=== PATIENT | male | born 1980 | race Caucasian/White ===

== ENCOUNTER 2020-01-17 17:02 | Emergency (ER) | payer OTHER ==
[~2020-01-17] VITALS: Ht 190.5 cm; Wt 88.5 kg
[2020-01-17 19:04] LABS: Hematocrit 22.8 % (41.0-53.0); Mean Corpuscular Hemoglobin 16.8 pg (28.0-32.0); Mean Corpuscular Hgb Conc. 28.8 g/dL (32.0-36.0); Mean Corpuscular Volume 58.5 fL (80.0-100.0); Platelet Count (auto) 541 10^3/uL (140-450); White Blood Cell 5.6 10^3/uL (4.4-10.8)
[2020-01-17 19:19] LABS: Hemoglobin 6.6 g/dL (13.5-17.5); INR 0.92 (0.9-1.15); Partial Thromboplastin Time 22.5 sec (23.0-31.2)
[2020-01-17 19:20] LABS: Basophils % (manual) 0 (0.0-2.0); Blast Cells 0; Eosinophils % (manual) 0 (0-7); Myelocytes % 0; Promyelocytes % 0; Reactive Lymphocytes 0
[2020-01-17 19:22] LABS: Albumin 3.6 g/dL (3.4-5.0); Anion Gap 5 (5-15); Calcium 8.9 mg/dL (8.5-10.1); Carbon Dioxide 29 mmol/L (21-32); Chloride 105 mmol/L (98-107); Glucose 105 mg/dL (74-106); Sodium 139 mmol/L (136-145)
[2020-01-17 19:30] LABS: Alanine Aminotransferase 20 U/L (16-61); Alkaline Phosphatase 67 U/L (45-117); Aspartate Aminotransferase 18 U/L (15-37); BUN/Creatinine Ratio 15.9; Bilirubin, Total 0.3 mg/dL (0.2-1.0); Blood Urea Nitrogen 14 mg/dL (7-18); GFR African American 123 mL/min; GFR Non-African American 102 mL/min; Total Protein 7.2 g/dL (6.4-8.2)
[2020-01-17 20:44] LABS: Band Neutrophils % (manual) 2; Lymphocytes % (manual) 36 (10.0-50.0); Metamyelocytes % 1; Monocytes % (manual) 9 (0-12)
[2020-01-18] MEDS ORDERED: FERROUS SULFATE 325 MG TAB PO ONE (07:00)
[2020-01-18 07:40] LABS: Hematocrit 22.9 % (41.0-53.0)
[2020-01-18 07:46] LABS: Hemoglobin 6.5 g/dL (13.5-17.5)
[2020-01-18 08:55] VITALS: BP 106/54
[2020-01-18 09:25] VITALS: BP 111/68
[2020-01-18 11:10] VITALS: BP 111/52
== END 2020-01-18 12:36 | disposition home or self-care (01) ==
LOC: ER 17:02
DX: D64.9 Anemia, unspecified (principal); I89.0 Lymphedema, not elsewhere classified; M79.89 Other specified soft tissue disorders; L03.90 Cellulitis, unspecified
CPT/HCPCS: 36415; 36430; 71045; 80053; 83880; 84484; 85007; 85014; 85018; 85027; 85610; 85730; 86850; 86900; 86901; 86920; 93970; 99291; P9016

== ENCOUNTER 2020-01-22 11:19 | Emergency (ER) | payer MEDICAID, OTHER ==
[~2020-01-22] VITALS: Ht 190.5 cm; Wt 88.5 kg
[2020-01-22 11:29] VITALS: BP 124/82
[2020-01-22 12:17] LABS: Basophils # (auto) 0.1 10 ^3/uL (0-0.2); Eosinophils # (auto) 0 10 ^3/uL (0-0.8); Eosinophils % (auto) 0.8 % (0.0-7.0); Hematocrit 24.9 % (41.0-53.0); Hemoglobin 7.3 g/dL (13.5-17.5); Lymphocytes # (auto) 1.8 10 ^3/uL (0.4-5.4); Lymphocytes % (auto) 34.9 % (10.0-50.0); Mean Corpuscular Hemoglobin 17.8 pg (28.0-32.0); Mean Corpuscular Hgb Conc. 29.3 g/dL (32.0-36.0); Mean Corpuscular Volume 60.9 fL (80.0-100.0); Monocytes # (auto) 0.6 10 ^3/uL (0-1.3); Monocytes % (auto) 12.1 % (0.0-12.0); Neutrophils # (auto) 2.7 10 ^3/uL (1.6-8.6); Neutrophils % (auto) 51.2 % (37.0-80.0); Platelet Count (auto) 539 10^3/uL (140-450); Red Blood Cells 4.09 10^6/uL (4.5-5.90); White Blood Cell 5.3 10^3/uL (4.4-10.8)
[2020-01-22 13:09] LABS: Anion Gap 6 (5-15); Blood Urea Nitrogen 17 mg/dL (7-18); Calcium 8.9 mg/dL (8.5-10.1); Carbon Dioxide 27 mmol/L (21-32); Chloride 105 mmol/L (98-107); GFR African American 128 mL/min; GFR Non-African American 106 mL/min; Glucose 107 mg/dL (74-106); Potassium 3.4 mmol/L (3.5-5.1); Sodium 138 mmol/L (136-145)
== END 2020-01-22 12:47 | disposition home or self-care (01) ==
LOC: ER 11:19
DX: I89.0 Lymphedema, not elsewhere classified (principal); D64.9 Anemia, unspecified
CPT/HCPCS: 36415; 80048; 85025